=== PATIENT | male | born 1965 | race American Indian/Alaskan Native ===

== ENCOUNTER 2022-01-24 09:56 | Emergency (ER) | payer SELFPAY ==
[2022-01-24 10:10] VITALS: BP 135/83
[2022-01-24] MEDS ORDERED: LIDOCAINE (1%) 10 MG/1 ML VIAL 20 ML MDV INFILTRATI ONE (10:52)
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
== END 2022-01-24 12:22 | disposition home or self-care (01) ==
LOC: ED 09:56
DX: S61.411D Laceration without foreign body of right hand, subsequent encounter (principal); V89.2XXD Person injured in unspecified motor-vehicle accident, traffic, subsequent encounter
CPT/HCPCS: 73120; 99283; J3490

== ENCOUNTER 2022-02-26 11:58 | Emergency (ER) | payer SELFPAY ==
[2022-02-26] MEDS ORDERED: ACETAMINOPHEN 325 MG TAB PO ONE (12:27)
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
--- NOTE | 2022-02-26 13:34 | XRay Report ---
RIGHT HAND 3 VIEWS INDICATION / CLINICAL INFORMATION: HAND PAIN - FOREIGN BODY IN THE HAND. COMPARISON: 01/25/2022 FINDINGS: BONES / JOINT(S): No acute fracture or subluxation. No other significant abnormality. SOFT TISSUES: Unchanged small radiopaque densities adjacent to the second metacarpal head. ADDITIONAL FINDINGS: None. IMPRESSION: 1. Unchanged likely foreign bodies adjacent to the second metacarpal head. Signer Name: Herman Jefferson MD Signed: 02/26/2022 1:30 PM Workstation Name: [email or web address]
[2022-02-26 14:00] VITALS: BP 135/68
== END 2022-02-26 13:59 | disposition home or self-care (01) ==
LOC: ED 11:58
DX: S67.21XS Crushing injury of right hand, sequela (principal); X58.XXXS Exposure to other specified factors, sequela
CPT/HCPCS: 99283

== ENCOUNTER 2022-03-19 11:22 | Day surgery (SDC) | payer OTHER ==
[~2022-03-19 11:22] MED LIST: ACETAMINOPHEN 500 MG TAB PO SCH; LACTATED RINGERS 1,000 ML IV SCH; MIDAZOLAM 2 MG/2 ML INJ IV NR; ceFAZolin/Water 2 GM/20 ML 2 GM/20 ML SYRINGE IV NR
--- NOTE | 2022-03-19 12:19 | Anesthesia Consultation ---
Anesthesia Consult and Med Hx Date of service: 03/19/22 - Airway Anesthetic Teeth Evaluation: Good (multiple missing teeth, none loose) ROM Head & Neck: Adequate Mental/Hyoid Distance: Adequate Mallampati Class: Class II Intubation Access Assessment: Probably Good - Pre-Operative Health Status ASA Pre-Surgery Classification: ASA1 Proposed Anesthetic Plan: MAC (discussed with patient possibility of conversion to GA if necessary) - Pulmonary Hx Smoking: No Hx Respiratory Symptoms: No - Cardiovascular System Hx Hypertension: No - Central Nervous System CVA: No - Endocrine Hx Renal Disease: No Hx Liver Disease: No Hx Insulin Dependent Diabetes: No Hx Non-Insulin Dependent Diabetes: No Hx Thyroid Disease: No - Other Systems Hx Obesity: No - Additional Comments Anesthesia Medical History Comments: No hx anesthetic complications.
[2022-03-19] MEDS ORDERED: HYDROcodone/ACETAMINOPHEN 5-325 MG TAB PO PRN (12:20)
[2022-03-19] MEDS ORDERED: HYDROmorphone 1 MG/1 ML INJ IV PRN (12:20)
[2022-03-19] MEDS ORDERED: ONDANSETRON 4 MG/2 ML INJ IV PRN (12:20)
--- NOTE | 2022-03-19 12:20 | Anesthesia Day of Surgery ---
Anesthesia Day of Surgery - Day of Surgery Patient Examined: Yes Patient H&P Reviewed: Yes Patient is NPO: Yes
[2022-03-19] MEDS ORDERED: BUPIVACAINE/PF (0.5%) 5 MG/1 ML 30 ML VIAL INFILTRATI ONE ×2 (12:59→14:24)
[2022-03-19] MEDS ORDERED: LIDOCAINE MPF (2%) 20 MG/1 ML VIAL 5 ML ONE (13:11)
[2022-03-19] MEDS ORDERED: ONDANSETRON 4 MG/2 ML INJ ONE (13:11)
[2022-03-19] MEDS ORDERED: fentaNYL 100 MCG/2 ML INJ ONE (13:11)
[2022-03-19] MEDS ORDERED: propofoL 200 MG/20 ML VIAL IV ONE (13:12)
[2022-03-19] MEDS ORDERED: KETAMINE/STERILE WATER 50 MG/ML SYRINGE ONE (14:09)
--- NOTE | 2022-03-19 15:11 | Operative Report ---
Operative Report Operative Report: OPERATIVE NOTE Preop diagnosis : 1. Multiple foriegn bodies ,Right hand Index metacarpal Postop diagnosis: 1. Small foreign bodies , RIGHT hand, index finger metacarpal Procedure: 1. Surgical exploration and removal of larger superficial glass fragments, RIGHT hand Surgeon: Brendon Quan MD special events assistant: None Anesthesia: General with MAC and local block Details of operative technique: Patient was prepared in same-day surgery. He was then brought to the operating room where he underwent general anesthesia utilizing MAC. He was placed in the supine position and all pressure points were well-padded. The right upper extremity including hand , wrist and forearm were prepped and draped in the usual sterile fashion with ChloraPrep solution. The extremity was then elevated , and with gravity exsanguination , the tourn iquet was inflated to 250 mmHg. A timeout was then called by the circulating nurse and once again the correct site was identified. The right hand was then examined and found to have old well-healed dorsal stab lacerations overlying the distal aspect of the index finger metacarpal primarily in the first webspace close to the metacarpal however. The number of small glass fragments that were revealed on the x-ray was approximately 3 superficial and two just deeper along the radial side in the first webspace. There was 1 single deep very tiny fragment on the ulnar side of the index finger metacarpal. Utilizing one of the original wounds on the radial side an incision was made approximately 1-1/2 cm in length. Dissection was carried down through the fibrofatty layer. Utilizing C arm images throughout the case with fluoroscopy, the superficial larger fragments were removed which numbered 3 with 1 small tiny speck of a glass fragment along with the other 3 larger fragments. 1 small fr agment very tiny that was allowed to remain as it was too difficult to localize even with x-ray and was deemed to be a nonirritant. A second incision was made utilizing one of the original wounds on the ulnar aspect of the index finger metacarpal to to retrieve this 1 small glass fragment which appeared to be much deeper than originally appreciated. This also was not removed. Final x-rays were made. All the large superficial fragments were removed. The wound was then irrigated with normal saline. The subcutaneous tissue was closed with 2-0 Vicryl for the radial incision. Both incisions were closed with 3-0 nylon for the skin. Xeroform dressings were applied followed by simple gauze compression dressings and these were secured with an Pradeep wrap. The radial incision was then injected superficially with 8 cc of Marcaine 0.5%. The patient was then awakened and taken to recovery room in excellent condition. Estimated blood loss : negligible Drains: None Complications: None Tourniquet time: 29 minutes
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
[2022-03-19 16:26] VITALS: BP 121/72
--- NOTE | 2022-03-19 18:23 | Post Anesthesia Evaluation ---
- Post Anesthesia Evaluation Patient Participated: Yes Airway Patent: Yes Stable Respiratory Function: Yes Nausea/Vomiting: No Temp > 96.8F: Yes Pain Manageable: Yes Adequeate Hydration: Yes Anesthesia Complications: No
== END 2022-03-19 16:00 | disposition home or self-care (01) ==
LOC: OR 11:22
PROVIDERS: ATTEND Orthopaedic Surgery
DX: S60.450A Superficial foreign body of right index finger, initial encounter (principal); Z98.890 Other specified postprocedural states; X58.XXXA Exposure to other specified factors, initial encounter; Y93.89 Activity, other specified; Y92.89 Other specified places as the place of occurrence of the external cause; Y99.8 Other external cause status
CPT/HCPCS: 10120; 73120; J0690; J2250; J2405; J2704; J3010; J3490; J7120